=== PATIENT | male | born 1965 | race Caucasian/White ===

== ENCOUNTER 2018-02-15 11:19 | Emergency (ER) | payer SELFPAY ==
[~2018-02-15] VITALS: Ht 185.4 cm; Wt 95.3 kg
--- NOTE | 2018-02-15 11:40 | NUR ---
BIB [facility] for possible overdose on tylenol, NAD noted, vss, resp even and unlabored, pt was put on monitor, waiting for md amador.
[2018-02-15 11:49] LABS: BASOPHILS % (AUTO) 0.5 % (0.0-2.0); EOSINOPHILS % (AUTO) 2.3 % (0.0-6.0); HEMATOCRIT 50 % (39-51); HEMOGLOBIN 16.9 g/dL (13.5-17.5); LYMPHOCYTES # (AUTO) 1.4 /CMM (0.8-4.8); LYMPHOCYTES % (AUTO) 19.9 % (20.0-44.0); MEAN CORPUSCULAR HEMOGLOBIN 30 PG (26.0-33.0); MEAN CORPUSCULAR HGB CONC 34 g/dl (31.0-36.0); MEAN CORPUSCULAR VOLUME 89 fL (80-96); MONOCYTES # (AUTO) 0.5 /CMM (0.1-1.30); MONOCYTES % (AUTO) 6.7 % (2.0-12.0); NEUTROPHILS # (AUTO) 4.8 /CMM (1.8-8.9); NEUTROPHILS % (AUTO) 70.6 % (43.0-81.0); PLATELET COUNT (AUTO) 174 /CMM (150-450); RED BLOOD CELL COUNT(AUTO) 5.61 MIL/uL (4.5-6.0); WHITE BLOOD COUNT (AUTO) 6.9 K/uL (4.3-11.0)
[2018-02-15 11:58] LABS: CALCIUM, SERUM 8.9 mg/dL (8.5-10.1); CREATININE 1.1 mg/dL (0.6-1.3); POTASSIUM 3.8 mmol/L (3.5-5.1)
[2018-02-15 12:12] LABS: ALBUMIN 3.9 g/dL (3.4-5.0); BILIRUBIN,DIRECT 0.1 mg/dL (0.0-0.2); BILIRUBIN,TOTAL 0.4 mg/dL (0.2-1.0); TOTAL PROTEIN, SERUM 6.9 g/dL (6.4-8.2)
[2018-02-15 12:45] LABS: APPEARANCE,URINE Clear (CLEAR); BILIRUBIN,URINE Negative (NEGATIVE); BLOOD, URINE Negative Ery/uL (NEGATIVE); COLOR,URINE Dark (YELLOW); KETONES,URINE Negative (NEGATIVE); LEUKOCYTE ESTERASE ,URINE Negative (NEGATIVE); NITRITE, URINE Negative (NEGATIVE); PROTEIN,URINE Negative (NEGATIVE); UGLUCOSE Negative (NEGATIVE); UROBILINOGEN,URINE 0.2 EU/dL (0.2)
--- NOTE | 2018-02-15 15:31 | NUR ---
phleb at bs, for repeat acetaminophen blood level.
--- NOTE | 2018-02-15 16:44 | NUR ---
CALL BACK FROM [facility] FOR AN UPDATE, RECOMMENDED THAT SALICYLATE BE REPEATED, DR CASTELLANOS INFORMED
[2018-02-15 17:29] VITALS: BP 162/99
--- NOTE | 2018-02-15 17:30 | NUR ---
Patient discharged to home in stable condition. Written and verbal after care instructions given. Patient verbalizes understanding of instruction.
== END 2018-02-15 17:30 | disposition home or self-care (01) ==
LOC: EDBD 11:20 → ER 11:20
DX: R51 Headache (principal); T39.1X5A Adverse effect of 4-Aminophenol derivatives, initial encounter; Z60.2 Problems related to living alone; Y92.89 Other specified places as the place of occurrence of the external cause
CPT/HCPCS: 36415; 80048; 80076; 80305; 80329; 81001; 85025; 99284; A4606; G0480 ×3; Z7610; 81000-TC